=== PATIENT | female | born 1960 | race Caucasian/White ===

== ENCOUNTER 2017-01-21 15:11 | Emergency (ER) | payer OTHER ==
[~2017-01-21] VITALS: Ht 167.6 cm; Wt 85.7 kg
[2017-01-21] MEDS ORDERED: SODIUM CHLORIDE FLUSH 10ML SYR IVF ONE (15:30)
[2017-01-21] MEDS ORDERED: PLEASE ENTER ALLERGIES MC SCH ×2 (16:00)
[2017-01-21 16:19] LABS: HEMATOCRIT 39.9 % (34.6-47.8); HEMOGLOBIN 13.7 g/dL (11.7-16.4); WHITE BLOOD COUNT 6.1 x10^3/uL (3.4-10)
[2017-01-21 16:28] LABS: BLOOD UREA NITROGEN 16 mg/dL (7-18)
[2017-01-21 16:33] LABS: IS PT STATUS REG ER OR PRE ER? YES
[2017-01-21 18:54] VITALS: BP 148/85
== END 2017-01-21 19:28 | disposition home or self-care (01) ==
LOC: ED 18:45
DX: R42 Dizziness and giddiness (principal); I10 Essential (primary) hypertension; Z85.820 Personal history of malignant melanoma of skin
CPT/HCPCS: 36415; 70450; 71010; 80048; 82040; 83880; 84484; 85025; 93005; 99285

== ENCOUNTER 2017-02-03 06:20 | Day surgery (SDC) | payer BC, OTHER ==
[2017-01-31 10:06] LABS: HEMATOCRIT 41.1 % (34.6-47.8); HEMOGLOBIN 14.3 g/dL (11.7-16.4)
[2017-01-31 11:00] LABS: ASPARTATE AMINO TRANSFERASE 17 U/L (15-37); BLOOD UREA NITROGEN 15 mg/dL (7-18)
[~2017-02-03] VITALS: Ht 167.6 cm; Wt 85.6 kg
[~2017-02-03 06:20] MED LIST: ALPR0.254 PO; CALCIUM PO; CHOL100011 PO; ESTR1TAB15 PO; FEXO180T72 PO; MAGNESIUM PO; OMEGA PO; OMEP40CA6 PO; POTASSIUM PO; ZINC PO; [UNRECOGNIZED DRUG - OTHER] PO
[2017-02-03 06:50] VITALS: BP 141/92
[2017-02-03] MEDS ORDERED: BUPIVACAINE/PF 0.5% ONE (06:52)
[2017-02-03] MEDS ORDERED: EPINEPHRINE 1 MG/ML, 1ML ONE (06:52)
[2017-02-03] MEDS ORDERED: LIDOCAINE 1%, 2ML ONE (06:58)
[2017-02-03] MEDS ORDERED: CEFAZOLIN 1,000 MG ONE ×2 (07:01)
[2017-02-03] MEDS ORDERED: PROPOFOL 10 MG/ML, 20ML ONE (07:01)
[2017-02-03] MEDS ORDERED: DEXAMETHASONE 4 MG/ML, 1ML ONE ×2 (07:02)
[2017-02-03] MEDS ORDERED: ONDANSETRON 2MG/ML, 2ML ONE (07:02)
[2017-02-03] MEDS ORDERED: SUCCINYLCHOLINE 20 MG/ML, 10ML ONE (07:02)
[2017-02-03] MEDS ORDERED: LIDOCAINE 4%, 4 ML SYR/CANN TP ONE (07:05)
[2017-02-03] MEDS ORDERED: MIDAZOLAM 1 MG/ML, 2ML ONE (07:11)
[2017-02-03] MEDS ORDERED: FENTANYL PF 250 MCG/5ML ONE (07:11)
[2017-02-03] MEDS ORDERED: GLYCOPYRROLATE 0.2MG/1ML, 5ML ONE ×2 (07:59)
[2017-02-03] MEDS ORDERED: OXYcodone 5 MG/5 ML ORAL.SOL UDC PO PRN (08:00)
[2017-02-03] MEDS ORDERED: ACETAMINOPHEN 325 MG TABLET PO PRN (08:00)
[2017-02-03] MEDS ORDERED: PROMETHAZINE 25 MG/ML, 1ML IV PRN (08:00)
[2017-02-03] MEDS ORDERED: ACETAMINOPHEN 650 MG/20.3 ML UDC ONE (08:41)
[2017-02-03] MEDS ORDERED: FENTANYL PF 100 MCG/2ML ONE (08:41)
[2017-02-03] MEDS ORDERED: OXYcodone 5 MG/5 ML ORAL.SOL UDC ONE (08:41)
[2017-02-03] MEDS: FENTANYL PF 100 MCG/2ML IV PRN ×2 (08:45→08:50)
== END 2017-02-03 12:05 | disposition home or self-care (01) ==
LOC: OUT 06:20
PROVIDERS: ATTEND Surgery
DX: C43.59 Malignant melanoma of other part of trunk (principal); F17.200 Nicotine dependence, unspecified, uncomplicated; K21.9 Gastro-esophageal reflux disease without esophagitis; Z98.890 Other specified postprocedural states
CPT/HCPCS: 21935; 36415; 80053; 85025; 85610; 88307; 93005; J0171; J0330; J0690; J1100; J2250; J2405; J2704; J3010; J3490